=== PATIENT | male | born 1995 | race American Indian/Alaskan Native ===

== ENCOUNTER 2018-04-20 14:47 | Emergency (ER) | payer OTHER ==
[2018-04-20 14:54] VITALS: BP 125/58; TEMP 98
[2018-04-20] MEDS ORDERED: DiphenhydrAMINE 50 mg/ml Inj IVP STA (15:17)
[2018-04-20] MEDS ORDERED: Lactated Ringer's 1,000 ML IV STA (15:17)
[2018-04-20] MEDS ORDERED: Dextrose 5%/Lactated Ringer's 500 ML IV SCH (15:30)
[2018-04-20] MEDS ORDERED: DiphenhydrAMINE 50 mg/ml Inj ONE (15:32)
[2018-04-20 15:38] LABS: VENOUS BLOOD GAS BASE EXCESS 5.7 mmol/L (0.0-2.0); VENOUS BLOOD GAS PCO2 22 mmHg (40-60); VENOUS BLOOD GAS PO2 17 mm/Hg (30-55); VENOUS BLOOD PH 7.66 (7.32-7.43)
[2018-04-20 15:38] LABS: BASO # 0.1 K/uL (0.0-0.2); BASO % 0.8 % (0.0-2.0); EOS # 0.1 K/uL (0.0-0.7); EOS % 1.3 % (0.0-4.0); HEMOGLOBIN 14.9 g/dL (12.0-18.0); LYMPH # 0.8 K/uL (1.0-4.3); LYMPH % 8.6 % (20.0-40.0); MEAN CELL VOLUME 91.5 fl (80.0-94.0); MEAN CORPUSCULAR HEMOGLOBIN 30.6 pg (27.0-31.0); MEAN CORPUSCULAR HGB CONC 33.5 g/dL (33.0-37.0); MEAN PLATELET VOLUME 9.3 fl (7.2-11.7); MONO # 0.9 K/uL (0.0-0.8); MONO % 9.8 % (0.0-10.0); NEUT # 7.6 K/uL (1.8-7.0); NEUT % 79.5 % (50.0-75.0); NRBC % 0.1 % (0.0-0.0); PLATELET COUNT 211 K/uL (130-400); RBC 4.85 Mil/uL (4.40-5.90); RED CELL DISTRIBUTION WIDTH 12.8 % (11.5-14.5); WHITE BLOOD COUNT 9.6 K/uL (4.8-10.8)
--- NOTE | 2018-04-20 15:42 | ED PDOC ---
HPI:Nausea, Vomiting, Diarrhea Time Seen by Provider: 04/20/18 15:05 Chief Complaint (Nursing): GI Problem Chief Complaint (Provider): Vomiting History Per: Patient History/Exam Limitations: no limitations Onset/Duration Of Symptoms: Hrs (4 am) Current Symptoms Are (Timing): Still Present Have you had recent travel within the past 21 days to any of the following countries: [place], [place], [place] or [place]?: No Quality Of Discomfort: Cramping Associated Symptoms: Vomiting (4 episodes ), Other (chest tightness). denies: Fever Additional Complaint(s): 22 year old male presents to the ED complaining of vomiting and abdominal pain onset at 4 AM. Patient describes the abdominal pain as cramping and reports of 4 episodes of vomiting which is blood tinted associated with chills and chest tightness. He admits to drinking heavily yesterday and for the last 3 months patient has a lot of anxiety. Otherwise, he denies fever or recent travels. PMD: no family provider Past Medical History Reviewed: Historical Data, Nursing Documentation, Vital Signs Vital Signs: Last Vital Signs Temp 98.0 F 04/20/18 14:51 Pulse 78 04/20/18 14:51 Resp 18 04/20/18 14:51 BP 125/58 L 04/20/18 14:51 Pulse Ox 99 04/20/18 14:51 - Medical History PMH: No Chronic Diseases - Surgical History Surgical History: No Surg Hx - Family History Family History: States: No Known Family Hx - Social History Current smoker - smoking cessation education provided: No (vapes cannabis) Alcohol: Social Drugs: Denies - Home Medications Home Medications: Ambulatory Orders Medication Instructions Recorded Famotidine [Pepcid] 40 mg PO DAILY PRN #10 tab 04/20/18 Ondansetron ODT [Zofran ODT] 1 odt PO Q6 PRN #20 odt 04/20/18 - Allergies Allergies/Adverse Reactions: Allergies Allergy/AdvReac Type Severity Reaction Status Date / Time No Known Allergies Allergy Verified 04/20/18 14:51 Review of Systems ROS Statement: Except As Marked, All Systems Reviewed And Found Negative (As per HPI, otherwise negative) Constitutional: Positive for: Chills. Negative for: Fever Cardiovascular: Positive for: Other (chest tightness) Gastrointestinal: Positive for: Vomiting (4 episodes), Abdominal Pain Psych: Positive for: Anxiety Physical Exam - Reviewed Nursing Documentation Reviewed: Yes Vital Signs Reviewed: Yes - Physical Exam Appears: Positive for: In Acute Distress Head Exam: Positive for: ATRAUMATIC, NORMOCEPHALIC Skin: Positive for: Warm, Dry Eye Exam: Positive for: EOMI, PERRL ENT: Positive for: Other (dry mucous membrane ) Neck: Positive for: Painless ROM. Negative for: Trachea Midline Cardiovascular/Chest: Positive for: Regular Rate, Rhythm, Tachycardia. Negative for: Murmur Respiratory: Positive for: Normal Breath Sounds (clear lung sounds), Other (hyperventilating and tachypneic) Gastrointestinal/Abdominal: Positive for: Tenderness (diffuse). Negative for: Mass, Guarding, Rebound Back: Positive for: Normal Inspection. Negative for: Decreased ROM Extremity: Positive for: Normal ROM. Negative for: Deformity Lymphatic: Negative for: Adenopathy Neurologic/Psych: Positive for: Alert, Mood/Affect (anxious). Negative for: Motor/Sensory Deficits - Laboratory Results Result Diagrams: 04/20/18 15:22 04/20/18 15:22 Lab Results: pO2 17 mm/Hg (30-55) L 04/20/18 15:31 VBG pH 7.66 (7.32-7.43) H* 04/20/18 15:31 VBG pCO2 22 mmHg (40-60) L 04/20/18 15:31 VBG HCO3 27.9 mmol/L 04/20/18 15:31 VBG Total CO2 25.5 mmol/L (22-28) 04/20/18 15:31 VBG O2 Sat (Calc) 36.0 % (40-65) L 04/20/18 15:31 VBG Base Excess 5.7 mmol/L (0.0-2.0) H 04/20/18 15:31 VBG Potassium 3.6 mmol/L (3.6-5.2) 04/20/18 15:31 Sodium 138.0 mmol/L (132-148) 04/20/18 15:31 Chloride 103.0 mmol/L (98-107) 04/20/18 15:31 Glucose 114 mg/dL (75-110) H 04/20/18 15:31 Lactate 4.3 mmol/L (0.7-2.1) H* 04/20/18 15:31 FiO2 21.0 % 04/20/18 15:31 Blood Gas Comments Lac=4.3 04/20/18 15:31 Crit Value Called To rae Nagy 04/20/18 15:31 Crit Value Called By 04/20/18 15:31 Crit Value Read Back Y 04/20/18 15:31 Blood Gas Notified Time 1538 04/20/18 15:31 - ECG O2 Sat by Pulse Oximetry: 99 (RA) Pulse Ox Interpretation: Normal Medical Decision Making Medical Decision Making: Time: 1515 Impression: vomiting Differential Diagnosis: gastritis, reflux, dehydration, electrolyte ab normalities, anxiety, pancreatitis, hepatitis Plan: BBK Type and screen Venous blood gas shock panel EKG Alcohol serum CMP Drug screen Lipase Magnesium Phosphorous Troponin I ED urine dipstick CBC w/ Differential PTT Prothrombin time Chest portable [RAD] Benadryl 25mg Dextrose 5%/Lactated Ringers 500ml IV 100mls/hr Protonix Inj 40mg Reglan 10mg [employer] head IV insertion Influenza A B Reevaluation EKG Sinus tach, inferior T wave inversions, prolonged QTc 550 Labs demonstrate hypophosphatemia. IV and PO phosphate ordered 10p Repeat EKG Sinus rhythm with normalized QT. Otherwise unchanged. Tolerated po Pt stable for discharge. Scribe Attestation: Documented by Nancy Unger, acting as a scribe for Rae Parikh MD Provider Scribe Attestation: All medical record entries made by the Scribe were at my direction and personally dictated by me. I have reviewed the chart and agree that the record accurately reflects my personal performance of the history, physical exam, medical decision making, and the department course for this patient. I have also personally directed, reviewed, and agree with the discharge instructions and disposition. Disposition - Clinical Impression Clinical Impression: Vomiting, Hypophosphatemia Counseled Patient/Family Regarding: Studies Performed, Diagnosis, Need For Followup, Rx Given - Disposition Referrals: [facility] [Outside] (FOLLOW UP WITH YOUR DOCTOR OR [facility] IN 24-48 HOURS FOR REEVALUATION) Disposition: Routine/Home Disposition Time: 22:17 Condition: IMPROVED Prescriptions: Famotidine [Pepcid] 40 mg PO DAILY PRN #10 tab PRN Reason: reflux Ondansetron ODT [Zofran ODT] 1 odt PO Q6 PRN #20 odt PRN Reason: Nausea/Vomiting Instructions: Dehydration, Adult (DC), Nausea and Vomiting, Adult (DC) Forms: [facility] ED School/Work Excuse
[2018-04-20 15:43] LABS: INR 1.2; PROTHROMBIN TIME 13.3 Seconds (9.8-13.1)
[2018-04-20 15:46] LABS: PARTIAL THROMBOPLASTIN TIME 28.5 Seconds (25.6-37.1)
[2018-04-20 15:55] LABS: ALB/GLOB RATIO 1.1 (1.0-2.1); ALBUMIN 4.9 g/dL (3.5-5.0); ALT/SGPT 21 U/L (21-72); AST/SGOT 39 U/L (17-59); BLOOD UREA NITROGEN 12 mg/dl (9-20); CALCIUM 9.9 mg/dL (8.4-10.2); GFR NON-AFRICAN AMERICAN > 60; LIPASE 108 U/L (23-300)
[2018-04-20] MEDS ORDERED: Potassium & Sodium Phosphate PO STA (15:55)
[2018-04-20] MEDS ORDERED: POTASSIUM PHOSPHATE IVPB STA (15:57)
[2018-04-20] MEDS ORDERED: DEXTROSE IVPB STA (15:57)
[2018-04-20] MEDS ORDERED: WATER IVPB STA (15:57)
--- NOTE | 2018-04-20 15:59 | RAD ---
Date of service: 04/20/2018 HISTORY: The chest pain COMPARISON: No prior. FINDINGS: LUNGS: No active pulmonary disease. Scattered metallic densities seen overlying the left lung base and left upper quadrant of the abdomen and to a lesser degree right lung base. Findings could represent overlying artifact however shrapnel and/or bullet fragments not excluded.. Clinical correlation recommended. PLEURA: No significant pleural effusion identified, no pneumothorax apparent. CARDIOVASCULAR: No aortic atherosclerotic calcification present. Normal cardiac size. No pulmonary vascular congestion. OSSEOUS STRUCTURES: No significant abnormalities. VISUALIZED UPPER ABDOMEN: Normal. OTHER FINDINGS: None. IMPRESSION: No active disease.
[2018-04-20 17:21] LABS: BARBITURATES, UR NEGATIVE (NEGATIVE); BENZODIAZEPINES, UR NEGATIVE (NEGATIVE); OPIATES, UR NEGATIVE (NEGATIVE); PHENCYCLIDINE, UR NEGATIVE (NEGATIVE)
[2018-04-20 17:42] LABS: EOSINOPHIL 1 % (0-7); LARGE PLATELETS PRESENT; LYMPHOCYTE 8 % (20-50); MONOCYTE 9 % (0-10); NEUTROPHIL 82 % (42-75); PLATELET ESTIMATE NORMAL (NORMAL); TOTAL CELLS COUNTED 100
--- NOTE | 2018-04-20 21:35 | CARD ---
APPROVED REPORT Date of service: 04/20/2018 EKG Measurement Heart [id number] <Conclusion> Normal sinus rhythm Rightward axis Prolonged QT Abnormal ECG
[2018-04-20 22:31] VITALS: PULSE 87; RESP 16
[2018-04-20 23:10] VITALS: O2SAT 99
--- NOTE | 2018-04-21 10:01 | CARD ---
APPROVED REPORT Date of service: 04/20/2018 EKG Measurement Heart [id number] <Conclusion> Sinus tachycardia Rightward axis Left ventricular hypertrophy with secondary repolarization abnormalities Borderline ECG
== END 2018-04-20 22:31 | disposition home or self-care (01) ==
LOC: H.ER 14:47
DX: R11.10 Vomiting, unspecified (principal); E83.39 Other disorders of phosphorus metabolism; Z79.899 Other long term (current) drug therapy
CPT/HCPCS: 71045; 80053; 80320; 80324; 80345; 80346; 80349; 80353; 80358; 80361; 82803; 83690; 83735; 83992; 84100; 84484; 85025; 85610; 85730; 86850; 86900; 87804; 93005; 96361; 96374; 96375; 99284; C9113; J1200; J2765; J7060; J7120